=== PATIENT | male | born 1955 | race Caucasian/White ===

== ENCOUNTER 2018-05-25 09:11 | Inpatient (IN) | payer MEDICARE, OTHER ==
[~2018-05-25] VITALS: Ht 175.3 cm; Wt 72.0 kg
[2018-05-25] MEDS ORDERED: albuterol 2.5 MG/3 ML nebule CONTNEB PRN (09:15)
[2018-05-25] MEDS ORDERED: succinylcholine 20mg/ml inj IV ONE (09:17)
[2018-05-25 09:30] LABS: BASOPHILS % (AUTO) 0.3 % (0-1); EOSINOPHILS # (AUTO) 0.1 X10'3 (0-0.9); EOSINOPHILS % (AUTO) 1.4 % (0-6); HEMATOCRIT 47.4 % (42.0-52.0); HEMOGLOBIN 15.7 g/dl (14.0-17.9); LYMPHOCYTES # (AUTO) 3.4 X10'3 (1.1-4.8); MEAN CORPUSCULAR HEMOGLOBIN 30.5 PG (27.0-31.0); MEAN CORPUSCULAR HGB CONC 33.1 % (33.0-36.5); MEAN CORPUSCULAR VOLUME 92.3 FL (78-98); MEAN PLATELET VOLUME 9.1 FL (7.4-10.4); MONOCYTES # (AUTO) 1.3 X10'3 (0-0.9); MONOCYTES % (AUTO) 12.5 % (2-12); NEUTROPHILS # (AUTO) 5.6 X10'3 (1.8-7.7); NEUTROPHILS % (AUTO) 53.8 % (42-75); PLATELET COUNT 252 X10'3 (140-440); RED BLOOD COUNT 5.13 X10'6 (4.70-6.10); RED CELL DISTRIBUTION WIDTH 13.8 % (11.5-14.5); WHITE BLOOD COUNT 10.5 X10'3 (4.5-11.0)
[2018-05-25 09:31] LABS: ABG BASE EXCESS 3.1 mmol/L (-2.0-3.0); ABG HCO3 29.1 mmol/L (22.0-26.0); ABG OXYGEN SATURATION 99.4 % (95-98); ABG PCO2 (T) 49.6 mmHg (35.0-48.0); ABG PH (T) 7.387 (7.350-7.450); ABG PO2 (T) 546.8 mmHg (83-108); ALLEN'S TEST Positive; FCOHb 0.9 % (0.5-1.5); FMetHb 0.2 % (0.3-1.12); FO2Hb 98.3 % (94-100); RESPIRATORY RATE 14 b/min; TOTAL HEMOGLOBIN 15.7 G/dl (14.0-18.0)
[2018-05-25] MEDS ORDERED: magnesium 2GM in 50ml NS 50 ML IV ONE (09:50)
[2018-05-25 09:52] LABS: ALANINE AMINOTRANSFERASE 13 U/L (12-78); ALBUMIN 3.7 G/DL (3.4-5.0); ALBUMIN/GLOBULIN RATIO 0.8 (1.1-1.5); ALKALINE PHOSPHATASE 145 IU/L (46-116); ANION GAP 10 (8-16); ASPARTATE AMINO TRANSFERASE 19 U/L (10-37); BILIRUBIN,TOTAL 0.8 MG/DL (0.1-1.0); BLOOD UREA NITROGEN 9 MG/DL (7-18); BUN/CREATININE RATIO 10.7 (5.4-32.0); CALCIUM 9.1 MG/DL (8.5-10.1); CHLORIDE 101 MMOL/L (99-107); CREATININE 0.84 MG/DL (0.60-1.10); GLUCOSE 102 MG/DL (70-104); POTASSIUM 3.8 MMOL/L (3.5-5.1); SODIUM 137 MMOL/L (135-145); TOTAL CARBON DIOXIDE 26.4 MMOL/L (24-32); TOTAL PROTEIN 8.3 G/DL (6.4-8.2); eGFR > 90 ML/MIN
[2018-05-25 10:07] LABS: PARTIAL THROMBOPLASTIN TIME 29 SECONDS (22-32); PROTHROMBIN TIME 10.6 SECONDS (9.0-12.0)
[2018-05-25 10:16] LABS: ABG BASE EXCESS 2.6 mmol/L (-2.0-3.0); ABG HCO3 28.5 mmol/L (22.0-26.0); ABG OXYGEN SATURATION 98.7 % (95-98); ABG PCO2 (T) 48.3 mmHg (35.0-48.0); ABG PH (T) 7.388 (7.350-7.450); ABG PO2 (T) 148.6 mmHg (83-108); ALLEN'S TEST Positive; FCOHb 0.9 % (0.5-1.5); FMetHb 0.1 % (0.3-1.12); FO2Hb 97.7 % (94-100); MINUTE VOLUME 20 L/min; RESPIRATORY RATE 14 b/min; RESPIRATORY RATE (OBSERVED) 24 b/min; TOTAL HEMOGLOBIN 15.6 G/dl (14.0-18.0)
[2018-05-25] MEDS ORDERED: AMLO2.5T2 PO (10:25)
[2018-05-25] MEDS ORDERED: ALBU8HFA PO (10:25)
[2018-05-25] MEDS ORDERED: BUDE10.2 INH (10:26)
[2018-05-25] MEDS ORDERED: CHOL10002 PO (10:26)
[2018-05-25] MEDS ORDERED: potassium Cl 40MEQ/NS 500ml 500 ML IV PRN ×2 (11:30)
[2018-05-25] MEDS ORDERED: potassium Cl 20 mEq SR tablet PO PRN ×2 (11:30)
[2018-05-25] MEDS ORDERED: magnesium Cl slow-release 64mg tablet PO PRN (11:30)
[2018-05-25] MEDS ORDERED: acetaminophen 325mg tablet PO PRN (11:30)
[2018-05-25] MEDS ORDERED: magnesium hydroxide 30ml (MOM) UD suspension PO PRN (11:30)
[2018-05-25] MEDS ORDERED: ondansetron/PF 4mg/2ml inj IV PRN (11:30)
[2018-05-25] MEDS ORDERED: magnesium 4gm in 100ml NS 100 ML IV PRN (11:30)
[2018-05-25] MEDS ORDERED: mag hydrox/Alum hydrox/simeth 30ml oral suspension PO PRN (11:30)
[2018-05-25] MEDS: CefTRIAXone/D5W-Rocephin 1gm 50 ML IV SCH (11:45)
[2018-05-25] MEDS ORDERED: albuterol 2.5 MG/3 ML nebule NEB PRN (12:55)
[2018-05-25] MEDS: methylPREDNISolone sod succ/PF 40mg inj. IV SCH ×2 (14:40→19:34)
[2018-05-25 15:00] VITALS: BP 188/85
[2018-05-25] MEDS: albuterol 2.5 MG/3 ML nebule NEB SCH ×2 (15:00→19:30)
[2018-05-25] MEDS ORDERED: lisinopril 10 MG tablet PO ONE (16:30)
[2018-05-25 19:00] VITALS: BP 164/90
[2018-05-25] MEDS: budesonide 0.5mg/2ml UD nebule IH SCH (19:30)
[2018-05-25] MEDS: heparin, porcine 5000 units/ml vial SQ SCH (19:34)
[2018-05-25 23:00] VITALS: BP 126/68
[2018-05-26] MEDS: methylPREDNISolone sod succ/PF 40mg inj. IV SCH ×4 (01:03→20:25)
[2018-05-26] MEDS ORDERED: LORazepam 1 MG tablet PO PRN (02:30)
[2018-05-26 03:00] VITALS: BP 121/92
[2018-05-26 05:25] LABS: HEMATOCRIT 41.3 % (42.0-52.0); HEMOGLOBIN 14.6 g/dl (14.0-17.9); LYMPHOCYTES % (AUTO) 5.6 % (21-51); MEAN CORPUSCULAR HEMOGLOBIN 32.1 PG (27.0-31.0); MEAN CORPUSCULAR HGB CONC 35.3 % (33.0-36.5); MEAN CORPUSCULAR VOLUME 91.1 FL (78-98); MEAN PLATELET VOLUME 9.8 FL (7.4-10.4); MONOCYTES % (AUTO) 1.3 % (2-12); NEUTROPHILS % (AUTO) 93.1 % (42-75); PLATELET COUNT 246 X10'3 (140-440); RED BLOOD COUNT 4.54 X10'6 (4.70-6.10); RED CELL DISTRIBUTION WIDTH 13.3 % (11.5-14.5); WHITE BLOOD COUNT 14.4 X10'3 (4.5-11.0)
[2018-05-26 05:26] LABS: BASOPHILS % (AUTO) 0 % (0-1); EOSINOPHILS % (AUTO) 0 % (0-6); LYMPHOCYTES # (AUTO) 0.8 X10'3 (1.1-4.8); MONOCYTES # (AUTO) 0.2 X10'3 (0-0.9); NEUTROPHILS # (AUTO) 13.4 X10'3 (1.8-7.7)
[2018-05-26 05:33] LABS: ALANINE AMINOTRANSFERASE 15 U/L (12-78); ALBUMIN 3.2 G/DL (3.4-5.0); ALBUMIN/GLOBULIN RATIO 0.8 (1.1-1.5); ALKALINE PHOSPHATASE 128 IU/L (46-116); ANION GAP 9 (8-16); ASPARTATE AMINO TRANSFERASE 12 U/L (10-37); BILIRUBIN,TOTAL 0.4 MG/DL (0.1-1.0); BLOOD UREA NITROGEN 18 MG/DL (7-18); BUN/CREATININE RATIO 18.4 (5.4-32.0); CHLORIDE 101 MMOL/L (99-107); CREATININE 0.98 MG/DL (0.60-1.10); GLUCOSE 164 MG/DL (70-104); POTASSIUM 3.8 MMOL/L (3.5-5.1); SODIUM 137 MMOL/L (135-145); TOTAL CARBON DIOXIDE 27.3 MMOL/L (24-32); TOTAL PROTEIN 7.4 G/DL (6.4-8.2); eGFR 77 ML/MIN
[2018-05-26 06:00] VITALS: BP 135/65
[2018-05-26] MEDS: ipratropium/albuterol 3ml nebule NEB SCH ×4 (06:51→19:58)
[2018-05-26] MEDS: budesonide 0.5mg/2ml UD nebule IH SCH ×2 (07:20→19:58)
[2018-05-26] MEDS: albuterol 2.5 MG/3 ML nebule NEB SCH (07:20)
[2018-05-26] MEDS: CefTRIAXone/D5W-Rocephin 1gm 50 ML IV SCH (07:22)
[2018-05-26] MEDS: lisinopril 10 MG tablet PO SCH (07:22)
[2018-05-26] MEDS: heparin, porcine 5000 units/ml vial SQ SCH ×2 (07:23→20:24)
[2018-05-26] MEDS: amLODIPine 2.5mg tablet PO SCH (07:23)
[2018-05-26] MEDS: K and/or MAG REPLACEMENT MC SCH (07:43)
[2018-05-26] MEDS: levoFLOXACIN-Levaquin 750MG/D5 150 ML IV SCH (10:47)
[2018-05-26 11:00] VITALS: BP 137/77
[2018-05-26 15:00] VITALS: BP 119/68
[2018-05-26 19:00] VITALS: BP 123/79
[2018-05-26 23:00] VITALS: BP 114/63
[2018-05-27] MEDS: methylPREDNISolone sod succ/PF 40mg inj. IV SCH ×3 (01:35→15:02)
[2018-05-27 03:00] VITALS: BP 117/70
[2018-05-27 05:33] LABS: BASOPHILS % (AUTO) 0.1 % (0-1); EOSINOPHILS # (AUTO) 0.2 X10'3 (0-0.9); EOSINOPHILS % (AUTO) 1.4 % (0-6); HEMATOCRIT 39.8 % (42.0-52.0); HEMOGLOBIN 13.3 g/dl (14.0-17.9); LYMPHOCYTES # (AUTO) 0.6 X10'3 (1.1-4.8); LYMPHOCYTES % (AUTO) 3.1 % (21-51); MEAN CORPUSCULAR HGB CONC 33.3 % (33.0-36.5); MEAN CORPUSCULAR VOLUME 93.2 FL (78-98); MEAN PLATELET VOLUME 9.9 FL (7.4-10.4); MONOCYTES # (AUTO) 0.4 X10'3 (0-0.9); MONOCYTES % (AUTO) 2.1 % (2-12); NEUTROPHILS # (AUTO) 17.1 X10'3 (1.8-7.7); NEUTROPHILS % (AUTO) 93.3 % (42-75); PLATELET COUNT 226 X10'3 (140-440); RED BLOOD COUNT 4.28 X10'6 (4.70-6.10); RED CELL DISTRIBUTION WIDTH 14.3 % (11.5-14.5); WHITE BLOOD COUNT 18.4 X10'3 (4.5-11.0)
[2018-05-27 05:54] LABS: ALANINE AMINOTRANSFERASE 15 U/L (12-78); ALBUMIN 2.9 G/DL (3.4-5.0); ALBUMIN/GLOBULIN RATIO 0.8 (1.1-1.5); ALKALINE PHOSPHATASE 102 IU/L (46-116); ANION GAP 7 (8-16); ASPARTATE AMINO TRANSFERASE 11 U/L (10-37); BILIRUBIN,TOTAL 0.2 MG/DL (0.1-1.0); BLOOD UREA NITROGEN 20 MG/DL (7-18); BUN/CREATININE RATIO 22.7 (5.4-32.0); CALCIUM 8.8 MG/DL (8.5-10.1); CHLORIDE 103 MMOL/L (99-107); CREATININE 0.88 MG/DL (0.60-1.10); GLUCOSE 163 MG/DL (70-104); MAGNESIUM 1.9 MG/DL (1.5-2.4); POTASSIUM 4.3 MMOL/L (3.5-5.1); SODIUM 138 MMOL/L (135-145); TOTAL CARBON DIOXIDE 28.4 MMOL/L (24-32); TOTAL PROTEIN 6.5 G/DL (6.4-8.2); eGFR 87 ML/MIN
[2018-05-27 06:00] VITALS: BP 124/88
[2018-05-27] MEDS: ipratropium/albuterol 3ml nebule NEB SCH ×6 (06:53→23:15)
[2018-05-27] MEDS: budesonide 0.5mg/2ml UD nebule IH SCH ×2 (07:13→19:36)
[2018-05-27] MEDS: lisinopril 10 MG tablet PO SCH (07:52)
[2018-05-27] MEDS: heparin, porcine 5000 units/ml vial SQ SCH ×2 (07:53→21:06)
[2018-05-27] MEDS: levoFLOXACIN-Levaquin 750MG/D5 150 ML IV SCH (07:54)
[2018-05-27] MEDS: amLODIPine 2.5mg tablet PO SCH (07:58)
[2018-05-27] MEDS: K and/or MAG REPLACEMENT MC SCH (08:00)
[2018-05-27 11:00] VITALS: BP 113/66
[2018-05-27 15:00] VITALS: BP 132/68
[2018-05-27 19:00] VITALS: BP 142/70
[2018-05-27] MEDS ORDERED: iohexol 350MG/ML 100ml bottle IV ONE (19:21)
[2018-05-27] MEDS: lactobacillus rhamnosus 10,000 MMU CELLS/CAPSULE PO SCH (21:05)
[2018-05-27 23:00] VITALS: BP 159/77
[2018-05-28] MEDS: methylPREDNISolone sod succ/PF 40mg inj. IV SCH ×3 (01:00→15:56)
[2018-05-28] MEDS: ipratropium/albuterol 3ml nebule NEB SCH ×6 (02:59→22:53)
[2018-05-28 03:00] VITALS: BP 134/86
[2018-05-28 06:07] LABS: ALANINE AMINOTRANSFERASE 17 U/L (12-78); ALBUMIN 2.8 G/DL (3.4-5.0); ALBUMIN/GLOBULIN RATIO 0.8 (1.1-1.5); ALKALINE PHOSPHATASE 90 IU/L (46-116); ANION GAP 7 (8-16); ASPARTATE AMINO TRANSFERASE 10 U/L (10-37); BILIRUBIN,TOTAL 0.3 MG/DL (0.1-1.0); BLOOD UREA NITROGEN 18 MG/DL (7-18); BUN/CREATININE RATIO 22.2 (5.4-32.0); CALCIUM 8.5 MG/DL (8.5-10.1); CHLORIDE 102 MMOL/L (99-107); CREATININE 0.81 MG/DL (0.60-1.10); GLUCOSE 169 MG/DL (70-104); POTASSIUM 4.2 MMOL/L (3.5-5.1); SODIUM 137 MMOL/L (135-145); TOTAL CARBON DIOXIDE 27.6 MMOL/L (24-32); TOTAL PROTEIN 6.2 G/DL (6.4-8.2); eGFR > 90 ML/MIN
[2018-05-28 06:15] LABS: BASOPHILS % (AUTO) 0.3 % (0-1); EOSINOPHILS # (AUTO) 0.2 X10'3 (0-0.9); EOSINOPHILS % (AUTO) 1.6 % (0-6); HEMATOCRIT 39.3 % (42.0-52.0); HEMOGLOBIN 13.1 g/dl (14.0-17.9); LYMPHOCYTES # (AUTO) 0.5 X10'3 (1.1-4.8); LYMPHOCYTES % (AUTO) 3.5 % (21-51); MEAN CORPUSCULAR HEMOGLOBIN 30.8 PG (27.0-31.0); MEAN CORPUSCULAR HGB CONC 33.3 % (33.0-36.5); MEAN CORPUSCULAR VOLUME 92.5 FL (78-98); MEAN PLATELET VOLUME 10.1 FL (7.4-10.4); MONOCYTES # (AUTO) 0.5 X10'3 (0-0.9); MONOCYTES % (AUTO) 3.4 % (2-12); NEUTROPHILS # (AUTO) 13.2 X10'3 (1.8-7.7); NEUTROPHILS % (AUTO) 91.2 % (42-75); PLATELET COUNT 204 X10'3 (140-440); RED BLOOD COUNT 4.25 X10'6 (4.70-6.10); RED CELL DISTRIBUTION WIDTH 14.4 % (11.5-14.5); WHITE BLOOD COUNT 14.4 X10'3 (4.5-11.0)
[2018-05-28] MEDS: K and/or MAG REPLACEMENT MC SCH (06:59)
[2018-05-28 07:18] VITALS: BP 135/78
[2018-05-28] MEDS: budesonide 0.5mg/2ml UD nebule IH SCH ×2 (07:29→19:01)
[2018-05-28] MEDS: lactobacillus rhamnosus 10,000 MMU CELLS/CAPSULE PO SCH ×2 (07:53→20:21)
[2018-05-28] MEDS: amLODIPine 2.5mg tablet PO SCH (07:53)
[2018-05-28] MEDS: lisinopril 10 MG tablet PO SCH (07:54)
[2018-05-28] MEDS: heparin, porcine 5000 units/ml vial SQ SCH ×2 (07:54→20:21)
[2018-05-28] MEDS: levoFLOXACIN-Levaquin 750MG/D5 150 ML IV SCH (08:05)
[2018-05-28 11:00] VITALS: BP 141/70
[2018-05-28 14:02] VITALS: BP 155/85
[2018-05-28 18:00] VITALS: BP 141/76
[2018-05-28 22:00] VITALS: BP 158/86
[2018-05-29] MEDS: methylPREDNISolone sod succ/PF 40mg inj. IV SCH ×4 (00:41→23:50)
[2018-05-29] MEDS: ipratropium/albuterol 3ml nebule NEB SCH ×4 (03:12→19:58)
[2018-05-29 06:00] VITALS: BP 131/80
[2018-05-29 06:14] LABS: BASOPHILS # (AUTO) 0.1 X10'3 (0-0.2); BASOPHILS % (AUTO) 0.7 % (0-1); EOSINOPHILS # (AUTO) 0.1 X10'3 (0-0.9); EOSINOPHILS % (AUTO) 1.3 % (0-6); HEMATOCRIT 39.9 % (42.0-52.0); HEMOGLOBIN 13.3 g/dl (14.0-17.9); LYMPHOCYTES # (AUTO) 0.6 X10'3 (1.1-4.8); LYMPHOCYTES % (AUTO) 4.7 % (21-51); MEAN CORPUSCULAR HEMOGLOBIN 30.9 PG (27.0-31.0); MEAN CORPUSCULAR HGB CONC 33.3 % (33.0-36.5); MEAN CORPUSCULAR VOLUME 92.9 FL (78-98); MEAN PLATELET VOLUME 10.4 FL (7.4-10.4); MONOCYTES # (AUTO) 0.4 X10'3 (0-0.9); MONOCYTES % (AUTO) 3.3 % (2-12); NEUTROPHILS # (AUTO) 10.6 X10'3 (1.8-7.7); PLATELET COUNT 207 X10'3 (140-440); RED CELL DISTRIBUTION WIDTH 14.1 % (11.5-14.5); WHITE BLOOD COUNT 11.8 X10'3 (4.5-11.0)
[2018-05-29 06:23] LABS: ALANINE AMINOTRANSFERASE 18 U/L (12-78); ALBUMIN 2.7 G/DL (3.4-5.0); ALBUMIN/GLOBULIN RATIO 0.8 (1.1-1.5); ALKALINE PHOSPHATASE 83 IU/L (46-116); ANION GAP 4 (8-16); ASPARTATE AMINO TRANSFERASE 10 U/L (10-37); BILIRUBIN,TOTAL 0.2 MG/DL (0.1-1.0); BLOOD UREA NITROGEN 22 MG/DL (7-18); BUN/CREATININE RATIO 24.4 (5.4-32.0); CALCIUM 8.5 MG/DL (8.5-10.1); CHLORIDE 102 MMOL/L (99-107); GLUCOSE 166 MG/DL (70-104); MAGNESIUM 2.1 MG/DL (1.5-2.4); POTASSIUM 4.5 MMOL/L (3.5-5.1); SODIUM 136 MMOL/L (135-145); TOTAL CARBON DIOXIDE 29.6 MMOL/L (24-32); TOTAL PROTEIN 6.1 G/DL (6.4-8.2); eGFR 85 ML/MIN
[2018-05-29] MEDS: budesonide 0.5mg/2ml UD nebule IH SCH ×2 (07:13→19:58)
[2018-05-29] MEDS: K and/or MAG REPLACEMENT MC SCH (07:32)
[2018-05-29] MEDS: lactobacillus rhamnosus 10,000 MMU CELLS/CAPSULE PO SCH ×2 (08:25→20:34)
[2018-05-29] MEDS: amLODIPine 2.5mg tablet PO SCH (08:25)
[2018-05-29] MEDS: lisinopril 10 MG tablet PO SCH (08:25)
[2018-05-29] MEDS: levoFLOXACIN-Levaquin 750MG/D5 150 ML IV SCH (08:26)
[2018-05-29] MEDS: heparin, porcine 5000 units/ml vial SQ SCH ×2 (08:28→20:34)
[2018-05-29 10:00] VITALS: BP 147/83
[2018-05-29] MEDS ORDERED: HYDROcodone/acetaminophen 5mg/325mg tablet PO PRN (16:10)
[2018-05-29] MEDS ORDERED: cyclobenzaprine 10mg tablet PO PRN (16:10)
[2018-05-29] MEDS ORDERED: amLODIPine 5mg tablet PO ONE (16:15)
[2018-05-29 18:00] VITALS: BP 131/74
[2018-05-29 22:00] VITALS: BP 126/77
[2018-05-30] MEDS: ipratropium/albuterol 3ml nebule NEB SCH ×5 (00:08→15:32)
[2018-05-30 06:10] LABS: BASOPHILS % (AUTO) 0.3 % (0-1); EOSINOPHILS % (AUTO) 0 % (0-6); HEMATOCRIT 42.3 % (42.0-52.0); LYMPHOCYTES # (AUTO) 0.5 X10'3 (1.1-4.8); LYMPHOCYTES % (AUTO) 4.3 % (21-51); MEAN CORPUSCULAR VOLUME 93.7 FL (78-98); MONOCYTES # (AUTO) 0.5 X10'3 (0-0.9); MONOCYTES % (AUTO) 3.6 % (2-12); NEUTROPHILS # (AUTO) 11.5 X10'3 (1.8-7.7); NEUTROPHILS % (AUTO) 91.8 % (42-75); PLATELET COUNT 212 X10'3 (140-440); RED BLOOD COUNT 4.51 X10'6 (4.70-6.10); RED CELL DISTRIBUTION WIDTH 14.6 % (11.5-14.5); WHITE BLOOD COUNT 12.6 X10'3 (4.5-11.0)
[2018-05-30 06:25] LABS: ALANINE AMINOTRANSFERASE 16 U/L (12-78); ALBUMIN 2.7 G/DL (3.4-5.0); ALBUMIN/GLOBULIN RATIO 0.8 (1.1-1.5); ALKALINE PHOSPHATASE 85 IU/L (46-116); ANION GAP 5 (8-16); ASPARTATE AMINO TRANSFERASE 12 U/L (10-37); BILIRUBIN,TOTAL 0.3 MG/DL (0.1-1.0); BLOOD UREA NITROGEN 24 MG/DL (7-18); BUN/CREATININE RATIO 33.8 (5.4-32.0); CALCIUM 8.5 MG/DL (8.5-10.1); CHLORIDE 102 MMOL/L (99-107); CREATININE 0.71 MG/DL (0.60-1.10); GLUCOSE 164 MG/DL (70-104); MAGNESIUM 2.2 MG/DL (1.5-2.4); POTASSIUM 4.5 MMOL/L (3.5-5.1); SODIUM 136 MMOL/L (135-145); TOTAL CARBON DIOXIDE 28.6 MMOL/L (24-32); TOTAL PROTEIN 6.2 G/DL (6.4-8.2); eGFR > 90 ML/MIN
[2018-05-30 06:57] VITALS: BP 136/82
[2018-05-30] MEDS: levoFLOXACIN-Levaquin 750MG/D5 150 ML IV SCH (07:50)
[2018-05-30] MEDS: heparin, porcine 5000 units/ml vial SQ SCH (07:51)
[2018-05-30] MEDS: methylPREDNISolone sod succ/PF 40mg inj. IV SCH (07:51)
[2018-05-30] MEDS: lactobacillus rhamnosus 10,000 MMU CELLS/CAPSULE PO SCH (07:52)
[2018-05-30] MEDS: lisinopril 10 MG tablet PO SCH (07:52)
[2018-05-30] MEDS ORDERED: amLODIPine 5mg tablet PO SCH (08:00)
[2018-05-30] MEDS: K and/or MAG REPLACEMENT MC SCH (08:00)
[2018-05-30] MEDS: budesonide 0.5mg/2ml UD nebule IH SCH (08:54)
[2018-05-30 11:08] VITALS: BP 158/80
[2018-05-30] MEDS ORDERED: LEVO500T89 PO ×2 (13:51→13:54)
[2018-05-30] MEDS ORDERED: PRED10TA23 PO (13:51)
[2018-05-30] MEDS ORDERED: NOR5T PO (13:51)
[2018-05-30] MEDS ORDERED: LACT1CAP26 PO (13:51)
[2018-05-30] MEDS ORDERED: LISI10TA4 PO (13:51)
== END 2018-05-30 15:57 | disposition home or self-care (01) | DRG 189 ==
LOC: ER 09:12 → ED HOLD 11:18 → PCU 3S 13:02 → ORTHO 4S 05-28 14:07
PROVIDERS: ADMIT Internal Medicine; ATTEND Family Medicine
PROC: 5A09357 Assistance with Respiratory Ventilation, Less than 24 Consecutive Hours, Continuous Positive Airway Pressure (ICD-10-PCS; principal; 2018-05-25)
PROC: 5A09357 Assistance with Respiratory Ventilation, Less than 24 Consecutive Hours, Continuous Positive Airway Pressure (ICD-10-PCS; 2018-05-26)
PROC: 5A09357 Assistance with Respiratory Ventilation, Less than 24 Consecutive Hours, Continuous Positive Airway Pressure (ICD-10-PCS; 2018-05-27)
PROC: B32T1ZZ Computerized Tomography (CT Scan) of Left Pulmonary Artery using Low Osmolar Contrast (ICD-10-PCS; 2018-05-27)
PROC: B3201ZZ Computerized Tomography (CT Scan) of Thoracic Aorta using Low Osmolar Contrast (ICD-10-PCS; 2018-05-27)
PROC: B32S1ZZ Computerized Tomography (CT Scan) of Right Pulmonary Artery using Low Osmolar Contrast (ICD-10-PCS; 2018-05-27)
PROC: 5A09357 Assistance with Respiratory Ventilation, Less than 24 Consecutive Hours, Continuous Positive Airway Pressure (ICD-10-PCS; 2018-05-28)
PROC: 5A09357 Assistance with Respiratory Ventilation, Less than 24 Consecutive Hours, Continuous Positive Airway Pressure (ICD-10-PCS; 2018-05-29)
DX: J96.21 Acute and chronic respiratory failure with hypoxia (principal); J44.1 Chronic obstructive pulmonary disease with (acute) exacerbation; F12.10 Cannabis abuse, uncomplicated; I10 Essential (primary) hypertension; J40 Bronchitis, not specified as acute or chronic; G89.29 Other chronic pain; M54.2 Cervicalgia; M54.9 Dorsalgia, unspecified; F17.210 Nicotine dependence, cigarettes, uncomplicated; Z79.899 Other long term (current) drug therapy; Z91.19 Patient's noncompliance with other medical treatment and regimen; Z71.6 Tobacco abuse counseling; Z71.51 Drug abuse counseling and surveillance of drug abuser
CPT/HCPCS: 36415; 36600; 71045; 80053; 82803; 83605; 83735; 83880; 84484; 85018; 85025; 85610; 85730; 87040; 87070; 93005; 93306; 94640; 94660; 94760; 96365; 99291; G0378; J0330; J0696; J1644; J1956; J2920; J3475; J7626; Q9967

== ENCOUNTER 2021-06-14 05:42 | Emergency (ER) | payer OTHER ==
[~2021-06-14] VITALS: Ht 177.8 cm; Wt 100.0 kg
[~2021-06-14 05:42] MED LIST: ALBU8HFA PO; BUDE10.2 INH; CHOL10002 PO; GUAI100L97 PO; LACT1CAP26 PO
--- NOTE | 2021-06-14 08:30 | NUR ---
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 NEED TO CONTACT [facility] TO [facility].
--- NOTE | 2021-06-14 09:00 | NUR ---
CALLED [facility] [phone]. SPOKE WITH MARSHA AND PROVIDED HER WITH ALL REQUESTED INFO. STATES THAT HER TEAM SHOULD BE HERE WITHIN THE NEXT HOUR OR SO.
== END 2021-06-14 10:18 ==
LOC: ER 05:43
DX: I46.9 Cardiac arrest, cause unspecified (principal); I10 Essential (primary) hypertension; J44.9 Chronic obstructive pulmonary disease, unspecified; G89.29 Other chronic pain; Z79.899 Other long term (current) drug therapy
CPT/HCPCS: 92950; 99285